=== PATIENT | male | born 1975 | race Caucasian/White ===

== ENCOUNTER 2023-02-24 15:27 | Emergency (ER) | payer BC ==
[~2023-02-24] VITALS: Ht 165.1 cm; Wt 80.4 kg
[2023-02-24 15:55] VITALS: BP 144/92
--- NOTE | 2023-02-24 19:15 | NUR ---
PT REFUSED BLOOD DRAW. AWARE
[2023-02-24 20:10] LABS: CLARITY,URINE TURBID (Clear); COLOR,URINE BROWN (Yellow); GLUCOSE, URINE NEGATIVE (Neg); KETONES,URINE TRACE mg/dl (Neg); LEUKOCYTE ESTERASE ,URINE TRACE (Neg); OCCULT BLOOD,URINE LARGE (Neg); PH,URINE 6.5 (4.8-8.0); PROTEIN,URINE >=300 mg/dl (Neg)
[2023-02-24 20:21] LABS: UA COLLECTION TYPE CLN CATCH MIDSTREAM
[2023-02-24 20:23] LABS: NITRITES, URINE NEGATIVE (Neg)
[2023-02-24 20:24] LABS: RBC,URINE TNTC /HPF (0-2)
[2023-02-24 20:25] LABS: BACTERIA,URINE FEW /HPF (Neg); MUCUS STRANDS FEW /LPF (Neg); SQUAMOUS EPITHELIAL CELL,UR FEW /LPF (FEW)
[2023-02-24 20:26] LABS: AMORPHOUS URATES 4+
[2023-02-24] MEDS ORDERED: cephalexin 250mg capsule PO ONE (20:30)
[2023-02-24] MEDS ORDERED: FLO0.4C PO (20:41)
[2023-02-24] MEDS ORDERED: HYDR-3965 PO (20:41)
[2023-02-24] MEDS ORDERED: CEPH-585 PO (20:41)
== END 2023-02-24 21:13 | disposition home or self-care (01) ==
LOC: ER 15:28
DX: N20.0 Calculus of kidney (principal); Z79.899 Other long term (current) drug therapy
CPT/HCPCS: 74176; 81001; 87088; 99284